=== PATIENT | female | born 1945 | race Caucasian/White ===

== ENCOUNTER → 2017-04-28 | Outpatient (CLI) | payer MEDICARE, OTHER ==
[~2017-04-28] MED LIST: BUPIVACAINE MPF 0.25% 10 ML VIAL. ONE; IOHEXOL 300 MG/ML 50 ML VIAL. ONE; LIDOCAINE 1% PF 30 ML VIAL. ONE; methylPREDNISolone ACETATE 40 MG/ML VIAL. ONE
== END | disposition home or self-care (01) ==
LOC: SURG 09:27
PROVIDERS: ATTEND Anesthesiology Pain Medicine
DX: M70.62 Trochanteric bursitis, left hip (principal); M19.90 Unspecified osteoarthritis, unspecified site; F41.9 Anxiety disorder, unspecified; F32.9 Major depressive disorder, single episode, unspecified; N18.3 Chronic kidney disease, stage 3 (moderate)
CPT/HCPCS: 20610; 77002; 99204; J1030; J2001; J3490; Q9967

== ENCOUNTER → 2020-04-24 | Outpatient (CLI) | payer MEDICARE, OTHER ==
[2020-04-24] VITALS (8 sets, daily range): BP systolic 92–147; BP diastolic 47–81
[2020-04-24 16:49] LABS: BASO # 0.1 x10^3/uL (0.0-0.2); BASO % 2 % (0-3); EOS # 0.4 x10^3/uL (0.0-0.7); EOS % 6 % (0-3); HEMATOCRIT 23.8 % (36.0-47.0); LYMPH # 1.7 x10^3/uL (1.0-4.8); LYMPH % 24 % (24-48); MEAN CORPUSCULAR HEMOGLOBIN 18 pg (25-35); MEAN CORPUSCULAR HGB CONC 29 g/dL (31-37); MEAN CORPUSCULAR VOLUME 61 fL (79-100); MONO # 0.5 x10^3/uL (0.0-1.1); MONO % 7 % (0-9); NEUT # 4.5 x10^3uL (1.8-7.7); NEUT % 62 % (31-73); PLATELET COUNT 518 x10^3/uL (140-400); RED CELL DISTRIBUTION WIDTH 18.5 % (11.5-14.5); WHITE BLOOD COUNT 7.3 x10^3/uL (4.0-11.0)
[2020-04-24 16:59] LABS: HEMOGLOBIN 6.9 g/dL (12.0-15.5)
[2020-04-24 22:33] LABS: HEMATOCRIT 24.1 % (36.0-47.0); HEMOGLOBIN 7.4 g/dL (12.0-15.5)
== END | disposition home or self-care (01) ==
LOC: OPINF 16:00
PROVIDERS: ATTEND Family Medicine
DX: D50.9 Iron deficiency anemia, unspecified (principal)
CPT/HCPCS: 36415; 36430; 85014; 85018; 85025; 86850; 86900; 86901; 86920; P9016; 36592

== ENCOUNTER → 2020-08-27 | Outpatient (CLI) | payer MEDICARE ==
[2020-04-24 21:59] VITALS: BP 101/54
--- NOTE | 2020-08-28 15:27 | RAD ---
EXAM: Bilateral digital screening mammogram with tomosynthesis. HISTORY: 75-year-old female presents for screening mammography. TECHNIQUE: Full-field digital craniocaudal and mediolateral oblique 2D and 3D tomosynthesis images of both breasts are obtained for evaluation. Computer aided detection was applied. COMPARISON: 04/19/2018. BREAST PARENCHYMAL DENSITY: Level A - Mostly fat. FINDINGS: There is no new suspicious mass, microcalcification or region of architectural distortion. There is stable bilateral axillary and axillary tail lymph nodes. IMPRESSION: BI-RADS Category 2: Benign finding(s). RECOMMENDATION: Annual mammography is recommended. If your mammogram demonstrates that you have dense breast tissue, which could hide abnormalities, and if you have other risk factors for breast cancer that have been identified, you might benefit from s upplemental screening tests that may be suggested by your ordering physician. Dense breast tissue, i n and of itself, is a relatively common condition. This information is not provided to cause undue c oncern, but rather to raise your awareness and to promote discussion with your physician regarding th e presence of other risk factors, in addition to dense breast tissue. A report of your mammography re sults will be sent to you and your physician. You should contact your physician if you have any ques tions or concerns regarding this report. Mammography is a sensitive method for finding small breast cancers, but it does not detect them all a nd is not a substitute for careful clinical examination. A negative mammogram does not negate a clin ically suspicious finding and should not result in delay in biopsying a clinically suspicious abnorma lity. PQRS compliance statement - Patient information was entered into a reminder system with a target due date for the next mammogram. "Our facility is accredited by the [employer] Mammography [employer]." Electronically signed by: Velma Orourke MD (08/28/2020 3:25 PM) [id number]
== END ==
LOC: MAMMO 09:17
PROVIDERS: ATTEND Family Medicine
DX: Z12.31 Encounter for screening mammogram for malignant neoplasm of breast (principal)
CPT/HCPCS: 77063; 77067

== ENCOUNTER → 2020-10-13 | Day surgery (SDC) | payer MEDICARE ==
[~2020-10-13] MED LIST changes: +ATOR20TA58 PO; -BUPIVACAINE MPF 0.25% 10 ML VIAL. ONE; +DICL100G28 TP; +DULO60CA6 PO; +HYDR12.572 PO; +HYDR200T5 PO; -IOHEXOL 300 MG/ML 50 ML VIAL. ONE; +IPRATRPIUM/ALBUTEROL 0.5/2.5MG 3 ML NEBU. NEB PRN; +IV RINGERS SOLUTION,LACTATED 1,000 ML IV SCH; -LIDOCAINE 1% PF 30 ML VIAL. ONE; +LIDOCAINE 2% PF 5 ML VIAL. ONE; +METF500T16 PO; +MIDAZOLAM HCL PF 2 MG/2 ML VIAL. IV ONE; +PROPOFOL 10,000 MCG/ML (20ML) VIAL IV ONE; +ROPI1TAB4 PO; +ROPI3TAB4 PO; -methylPREDNISolone ACETATE 40 MG/ML VIAL. ONE; +vitamin d PO
[2020-10-13 11:52] VITALS: BP 127/91
== END | disposition home or self-care (01) ==
LOC: SURG 08:55
PROVIDERS: ATTEND Internal Medicine Gastroenterology
DX: R19.5 Other fecal abnormalities (principal); D50.9 Iron deficiency anemia, unspecified; K64.8 Other hemorrhoids; K57.30 Diverticulosis of large intestine without perforation or abscess without bleeding; K63.5 Polyp of colon; K44.9 Diaphragmatic hernia without obstruction or gangrene; K29.70 Gastritis, unspecified, without bleeding; F41.9 Anxiety disorder, unspecified; F32.9 Major depressive disorder, single episode, unspecified; K21.9 Gastro-esophageal reflux disease without esophagitis; E78.00 Pure hypercholesterolemia, unspecified; N18.30 Chronic kidney disease, stage 3 unspecified; M19.90 Unspecified osteoarthritis, unspecified site; Z86.010 Personal history of colon polyps; Z79.899 Other long term (current) drug therapy
CPT/HCPCS: 43239; 45385; J2001; J2704; J7120